=== PATIENT | male | born 1965 | race Caucasian/White ===

== ENCOUNTER 2022-04-23 11:00 | Outpatient (RCR) | payer OTHER, SELFPAY | END 2022-08-18 14:27 | disposition home or self-care (01) | PROVIDERS: PCP Orthopaedic Surgery; Visit Provider Orthopaedic Surgery | DX: Z51.89 Encounter for other specified aftercare (principal); S73.192D Other sprain of left hip, subsequent encounter; R29.898 Other symptoms and signs involving the musculoskeletal system | CPT/HCPCS: 97110; 97162 ==